=== PATIENT | female | born 1960 | race Caucasian/White ===

== ENCOUNTER → 2023-11-12 | Outpatient (CLI) | payer BC ==
[2023-11-12 12:23] LABS: HEMOGLOBIN A1C 5.6 % (4.0-6.0)
[2023-11-12 12:34] LABS: ALBUMIN 3.5 g/dL (3.5-5.0); BILIRUBIN,TOTAL 0.4 mg/dL (0.2-1.0); CREATININE 0.9 mg/dL (0.5-1.0); THYROID STIMULATING HORMONE 1.62 uIU/mL (0.36-3.74); TOTAL PROTEIN, SERUM 7.2 g/dL (6.0-8.3)
== END | disposition home or self-care (01) ==
LOC: LAB 08:12
PROVIDERS: ATTEND Student in an Organized Health Care Education/Training Program
DX: R00.2 Palpitations (principal); E78.5 Hyperlipidemia, unspecified
CPT/HCPCS: 36415; 80053; 80061; 83036; 84443